=== PATIENT | female | born 1985 | race Caucasian/White ===

== ENCOUNTER 2016-07-20 18:04 | Emergency (ER) | payer OTHER | END 2016-07-20 21:05 | disposition home or self-care (01) | DX: O02.1 Missed abortion (principal) ==

== ENCOUNTER 2017-11-17 16:16 | Emergency (ER) | payer OTHER ==
[2017-11-17 16:50] LABS: BILIRUBIN,URINE NEGATIVE (NEGATIVE); GLUCOSE, URINE (UA) NEGATIVE (NEGATIVE); KETONES,URINE (UA) NEGATIVE (NEGATIVE); LEUKOCYTE ESTERASE, URINE MODERATE (NEGATIVE); NITRITE,URINE POSITIVE (NEGATIVE); OCCULT BLOOD,URINE LARGE (NEGATIVE); PH,URINE 6.5 PH (5.0-7.5); PROTEIN,URINE 30 mg/dL (NEGATIVE); UROBILINOGEN,URINE 0.2 (NORMAL) E.U./dL (NORMAL)
[2017-11-17 16:54] LABS: CLARITY,URINE CLOUDY (CLEAR)
--- NOTE | 2017-11-17 16:56 | ED Physician Documentation ---
History of Present Illness - Stated complaint Stated Complaint: FEMALE - Chief complaint Chief Complaint: UTI - History obtained from History obtained from: Patient - History of Present Illness Timing: Yesterday Pain level max: 4 Pain level now: 3 Improved by: nothing Worsened by: urination - Additonal information Additional information: 32 year old female 10 days . States temp of 101 at home 4 days ago. Dysuria, urgency, frequency today. Multiple UTI's in the past. States felt feverish today. Also complains of lower back being sore. States mild bleeding still from vaginal , but improved. No lower abd pain. Pt is Review of Systems Constitutional: denies: Chills, Myalgias Ears: denies: Ear pain Nose: denies: Rhinorrhea / runny nose, Congestion Respiratory: denies: Cough GI: denies: Nausea, Vomiting, Diarrhea Skin: denies: Rash Musculoskeletal: denies: Neck pain PD PAST MEDICAL HISTORY - Past Medical History Past Medical History: No - Past Surgical History Past Surgical History: Yes /PALLIATIVE CARE PHYSICIAN: Dilation and currettage - Present Medications Home Medications: Ambulatory Orders Medication Instructions Recorded Confirmed Cephalexin [Keflex] 500 mg PO Q6H #28 capsule 11/17/17 Docusate Calcium 240 mg 11/17/17 - Allergies Allergies/Adverse Reactions: Allergies Allergy/AdvReac Type Severity Reaction Status Date / Time sulfamethoxazole Allergy Respiratory Verified 07/20/16 18:19 [From Bactrim] trimethoprim [From Bactrim] Allergy Respiratory Verified 07/20/16 18:19 - Social History Does the pt smoke?: No Smoking Status: Never smoker Does the pt drink ETOH?: No Does the pt have substance abuse?: No - Immunizations Immunizations are current?: Yes Immunizations: TDAP >10years/unknown PD ED PE NORMAL - Vitals Vital signs reviewed: Yes - General General: Alert and oriented X 3, No acute distress, Well developed/nourished, Other (well appearing, non-toxic) - HEENT HEENT: PERRL, Moist mucous membranes - Neck Neck: Supple, no meningeal sign - Cardiac Cardiac: RRR, Strong equal pulses - Respiratory Respiratory: No respiratory distress, Clear bilaterally - Abdomen Abdomen: Soft, Non tender, Non distended - Female Female : Pt declined - Back Back: No CVA TTP, No spinal TTP - Derm Derm: Warm and dry, No rash - Extremities Extremities: No edema - Neuro Neuro: Alert and oriented X 3 - Psych Psych: Normal mood, Normal affect Results - Vitals Vitals: Vital Signs - 24 hr 11/17/17 11/17/17 16:22 17:47 Temperature 36.7 C 36.7 C Heart Rate 98 87 Respiratory 18 18 Rate Blood Pressure 145/96 H 144/92 H O2 Saturation 98 96 Oxygen O2 Source Room air - Labs Labs: Laboratory Tests 11/17/17 16:38 Urine Color YELLOW Urine Clarity CLOUDY Urine pH 6.5 Ur Specific [place] 1.020 Urine Protein 30 H Urine Glucose (UA) NEGATIVE Urine Ketones NEGATIVE Urine Occult Blood LARGE H Urine Nitrite POSITIVE H Urine Bilirubin NEGATIVE Urine Urobilinogen 0.2 (NORMAL) Ur Leukocyte Esterase MODERATE H Urine RBC TNTC H Urine WBC >25 H Urine WBC Clumps PRESENT Ur Squamous Epith Cells RARE Squamous Amorphous Sediment Few Urine Bacteria Many H Ur Microscopic Review INDICATED Urine Culture Comments INDICATED PD MEDICAL DECISION MAKING - ED course Complexity details: reviewed results, re-evaluated patient, considered differential, d/w patient ED course: Patient is a 32-year-old female with what appears to be a UTI. She is very well -appearing, nontoxic. No CVA tenderness. No evidence of pyelonephritis. Does not appear to have an exam consistent with endometritis or retained products of conception. Will place on antibiotics and follow-up closely with her OB. Patient counseled regarding signs and symptoms for which I believe and urgent re -evaluation would be necessary. Patient with good understanding of and agreement to plan and is comfortable going home at this time This document was made in part using voice recognition software. While efforts are made to proofread this document, sound alike and grammatical errors may occur. - Sepsis Event Vital Signs: Vital Signs - 24 hr 11/17/17 11/17/17 16:22 17:47 Temperature 36.7 C 36.7 C Heart Rate 98 87 Respiratory 18 18 Rate Blood Pressure 145/96 H 144/92 H O2 Saturation 98 96 Oxygen O2 Source Room air Departure - Departure Disposition: 01 Home, Self Care Clinical Impression: Urinary tract infection Qualifiers: Urinary tract infection type: acute cystitis Hematuria presence: without hematuria Qualified Code(s): N30.00 - Acute cystitis without hematuria Condition: Good Instructions: ED UTI Cystitis Female Follow-Up: your,doctor in 5 days for recheck [Other] Prescriptions: Cephalexin [Keflex] 500 mg PO Q6H #28 capsule Comments: Return if you worsen. Take all antibiotics until gone. Discharge Date/Time: 11/17/17 17:47
[2017-11-17 16:58] LABS: RBC,URINE TNTC /HPF (0-5); WBC CLUMPS,URINE PRESENT
[2017-11-17 16:59] LABS: AMORPHOUS SEDIMENT,UR Few /LPF; BACTERIA,URINE Many /HPF (None Seen); SQUAMOUS EPITHELIAL CELL,UR RARE Squamous (<= Few)
[2017-11-17] MEDS ORDERED: cephALEXin 250 MG CAPSULE PO STA (16:59)
[2017-11-17] MEDS ORDERED: LIDOCAINE 1% 2 ML VIAL SUBQ ONE (17:00)
[2017-11-17] MEDS ORDERED: cefTRIAXone 1 GM VIAL IM STA (17:00)
[2017-11-17 17:49] VITALS: BP 144/92
== END 2017-11-17 17:47 | disposition home or self-care (01) ==
LOC: ED 16:16
DX: O99.89 Other specified diseases and conditions complicating pregnancy, childbirth and the puerperium (principal); N30.00 Acute cystitis without hematuria
CPT/HCPCS: 81001; 81003; 87086; 87181; 96372; 99283

== ENCOUNTER 2019-04-25 14:43 | Inpatient (IN) | payer OTHER ==
--- NOTE | 2019-04-25 15:39 | PROVIDER PROGRESS NOTE ---
- HPI Chief Complaint: Hypertension/PIH Current : Current EDU 04/30/19 Gestation 39 Weeks and 2 Days 3 Para 1 Vital Signs Temperature 99.3 F 04/25/19 15:00 Heart Rate 75 04/25/19 15:00 Respiratory Rate 18 04/25/19 15:00 Blood Pressure 138/87 H 04/25/19 15:00 O2 Saturation 99 04/25/19 15:00 Temperature 99.3 F 04/25/19 15:00 Heart Rate 75 04/25/19 15:00 Respiratory Rate 18 04/25/19 15:00 Blood Pressure 138/87 H 04/25/19 15:00 O2 Saturation 99 04/25/19 15:00 33yo at 39+2 weeks by LMP c/w second trimester scan referred for further evaluation of HTN. Pt is new transfer from [facility] where she was receiving regular care. She was seen 2 days ago with BP of 145/90. She was asymptomatic and was scheduled to f/u later this week, but felt unwell this morning. Non- specific symptoms, just generally unwell. No n/v/f/c or dysuria. No headache, blurry vision or epigastric pain. Notes her usual GERD. No bleeding or fluid leak. Few mild contractions. Normal activity. Labs: H&H 31.9/11.0 Glucola 143>> nml 3hGTT VDRL/HepB/c neg Rubella/varicella immune GBS unknown - Procedures OB Procedure Performed: Other (NAKUL 13.2 GVP 3.50cm) Diagnosis/Indication for NST: Gestational Hypertension NST Procedure: NST Procedure Start Date 04/25/19 Start Time 14:52 Vibroacoustic Stimulation Used No Patient States Movement Yes Category 1, no accels. Vertex by scan NAKUL as noted - Plan Plan: 33yo at 39.2 weeks with mild gestational HTN. Assess for urine protein, check CMP H/O anemia; check CBC NST category1. No accels for rectivity Continue to monitor. Await results
[2019-04-25 15:45] LABS: BASOPHILS % (AUTO) 0.3 %; EOSINOPHILS % (AUTO) 0.1 %; HGB - HEMOGLOBIN 11.1 g/dL (12.0-16.0); LYMPHOCYTES # (AUTO) 1.7 10^3/uL (1.5-3.5); LYMPHOCYTES % (AUTO) 22.8 %; MEAN CORPUSCULAR HEMOGLOBIN 28.5 pg (27.0-31.0); MEAN CORPUSCULAR HGB CONC 33.9 g/dL (32.0-36.0); MEAN CORPUSCULAR VOLUME 84.1 fL (81.0-99.0); MEAN PLATELET VOLUME 10.3 fL (7.9-10.8); MONOCYTES # (AUTO) 0.5 10^3/uL (0.0-1.0); MONOCYTES % (AUTO) 6.3 %; NEUTROPHILS # (AUTO) 5.2 10^3/uL (1.5-6.6); NEUTROPHILS % (AUTO) 70.1 %; PLT - PLATELET COUNT 198 10^3/uL (130-450); RED BLOOD COUNT 3.89 10^6/uL (4.20-5.40); RED CELL DISTRIBUTION WIDTH 13.2 % (12.0-15.0); WHITE BLOOD COUNT 7.5 x10^3/uL (4.8-10.8)
[2019-04-25 15:54] LABS: ALBUMIN 2.9 g/dL (3.2-5.5); ALBUMIN/GLOBULIN RATIO 0.9 (1.0-2.2); BILIRUBIN,TOTAL 0.2 mg/dL (0.2-1.0); CALCIUM 9.1 mg/dL (8.5-10.3); CREATININE 0.8 mg/dL (0.4-1.0)
[2019-04-25 16:44] LABS: CREATININE,URINE 123.1 mg/dL; PROTEIN/CREATININE RATIO,URINE 0.2 (<=0.2)
[2019-04-25] MEDS ORDERED: OXYTOCIN/DEXTROSE 5 % 30 UNIT/500 ML BAG IV PRN (17:16)
[2019-04-25] MEDS ORDERED: ACETAMINOPHEN 325 MG TABLET PO PRN (17:16)
[2019-04-25] MEDS ORDERED: SODIUM CHLORIDE FLUSH 0.9% 10 ML SYRINGE IVP PRN (17:16)
[2019-04-25] MEDS ORDERED: fentaNYL 100 MCG/2 ML VIAL IVP PRN (17:16)
[2019-04-25] MEDS ORDERED: ONDANSETRON 4 MG/2 ML VIAL IVP PRN (17:16)
--- NOTE | 2019-04-25 17:25 | HISTORY & PHYSICAL EXAMINATION ---
Admit History - Visit Reason Visit Reason: Other (33yo at 39+2 weeks by LMP c/w second trimester scan referred for further evaluation of HTN. [facility] She was seen 2 days ago with BP of 145/90. She was asymptomatic and was scheduled to f/u later this week, but felt unwell this morning. Non-specific symptoms, just generally unwell. No n/v/f/c or dysuria. No headache, blurry vision or epigastric pain. Notes her usual GERD. No bleeding or fluid leak. Few mild contractions. Normal activity earlier today, now decreased. Labs: H&H 31.9/11.0 Glucola 143>> nml 3hGTT VDRL/HepB/c neg Rubella/varicella immune GBS neg 04/07) - Smoking Status: Never smoker - Mother's Labs Mother's Blood Type: positive: O Mother's RH: positive: Positive GBS: positive: Group B Step Negative Rubella Status: positive: Immune - Other Maternal History Other Maternal History: Iron deficiency Anemia Meds/Allgy - Home Medications Home Medications: Ambulatory Orders Medication Instructions Recorded Confirmed Calcium Carbonate [Tums (Calcium 500 mg PO BID 04/25/19 04/25/19 Carbonate 500mg)] Ferrous Sulfate 2 tab PO DAILY 04/25/19 04/25/19 Pnv No.95/Ferrous Fum/Folic AC 324 mg PO DAILY 04/25/19 04/25/19 [ Formula Tablet] - Allergies Allergies/Adverse Reactions: Allergies Allergy/AdvReac Type Severity Reaction Status Date / Time sulfamethoxazole Allergy Respiratory Verified 07/20/16 18:19 [From Bactrim] trimethoprim [From Bactrim] Allergy Respiratory Verified 07/20/16 18:19 Review of Systems - Other Findings Other Findings: As noted otherwise negative Physical - Abdominal Exam Vital Signs: Temp Pulse Resp BP Pulse Ox 99.3 F 75 18 138/87 H 99 04/25/19 15:00 04/25/19 15:00 04/25/19 15:00 04/25/19 15:00 04/25/19 15:00 Contraction Frequency (min/apart): rare Contraction Intensity: positive: Mild Uterine Resting Tone: positive: Soft - Monitoring Strip Review: positive: Category I (No accels No movement) - Presentation Presentation: positive: Vertex - Vaginal Exam Membranes: positive: Membranes intact Dilation (in cm): 1-2 Effacement (%): 0 Station: positive: -3 Cervical Position: positive: Midposition (Cook catheter placed with 60cc in uterine balloon, 40cc in vaginal balloon) Plan for Labor - Plan For Labor Plan for Labor: 33yo at 39+6 with gestational HTN, decreased movement admitted for IOL. Cook catheter placed for cervical ripening. IV fluid Transition to pitocin as indicated. Expect Exam - Exam Vital Signs: Vital Signs (72 hours) 04/25/19 15:00 Temperature 99.3 F Heart Rate [ 75 Monitoring electrodes] Respiratory 18 Rate Blood Pressure 138/87 H [Right Brachial artery] O2 Saturation 99 General: Alert, Oriented x3, Cooperative HEENT: Atraumatic Lungs: Clear to auscultation Cardiovascular: Regular rate Abdomen: Normal bowel sounds, Soft, No tenderness, No masses, Other (Gravid, S=D) Extremities: No clubbing Skin: No rashes Neurological: Normal gait, Normal speech Psych/Mental Status: Mental status NL
[2019-04-25] MEDS ORDERED: LACTATED RINGERS 1,000 ML IV SCH (18:00)
[2019-04-25] MEDS ORDERED: OXYTOCIN/DEXTROSE 5 % 30 UNIT/500 ML BAG IV SCH (18:00)
--- NOTE | 2019-04-25 22:12 | PROVIDER PROGRESS NOTE ---
Subjective - Prog Note Date Prog Note Date: 04/25/19 Prog Note Time: 22:10 - Subjective Subjective: Comfortable. Few mild contractions. Balloon still in place. VSS afen BP's 130-140's/80-90 FH category 1, accels present. Plan to add miso for cervical ripening Objective - Vital Signs/Intake & Output Vital Signs: Vital Signs x48h Temp Pulse Resp BP Pulse Ox 04/25/19 15:00 99.3 F 75 18 138/87 H 99 - Lab Results Fish Bones: 04/25/19 15:38 04/25/19 15:38 Other Labs: Lab Results x24hrs 04/25/19 04/25/19 04/25/19 Range/Units 17:55 16:00 15:38 WBC (4.8-10.8) x10^3/uL RBC (4.20-5.40) 10^6/uL Hgb (12.0-16.0) g/dL Hct (37.0-47.0) % MCV (81.0-99.0) fL MCH (27.0-31.0) pg MCHC (32.0-36.0) g/dL RDW (12.0-15.0) % Plt Count (130-450) 10^3/uL MPV (7.9-10.8) fL Neut # (Auto) (1.5-6.6) 10^3/uL Lymph # (Auto) (1.5-3.5) 10^3/uL [place] # (Auto) (0.0-1.0) 10^3/uL Eos # (Auto) (0.0-0.7) 10^3/uL Baso # (Auto) (0.0-0.1) 10^3/uL Absolute Nucleated RBC x10^3/uL Nucleated RBC % /100WBC Sodium 136 (135-145) mmol/L Potassium 3.1 L (3.5-5.0) mmol/L Chloride 107 (101-111) mmol/L Carbon Dioxide 21 (21-32) mmol/L Anion Gap 8.0 (6-13) BUN 7 (6-20) mg/dL Creatinine 0.8 (0.4-1.0) mg/dL Estimated GFR (MDRD) 84 L (>89) Glucose 130 H (70-100) mg/dL Calcium 9.1 (8.5-10.3) mg/dL Total Bilirubin 0.2 (0.2-1.0) mg/dL AST 19 (10-42) IU/L ALT 13 (10-60) IU/L Alkaline Phosphatase 93 (42-121) IU/L Total Protein 6.0 L (6.7-8.2) g/dL Albumin 2.9 L (3.2-5.5) g/dL Globulin 3.1 (2.1-4.2) g/dL Albumin/Globulin Ratio 0.9 L (1.0-2.2) Urine Creatinine 123.1 mg/dL Ur Total Protein Timed 23 mg/dL Protein/Creatinin Ratio 0.2 (<=0.2) Blood Type O POSITIVE Antibody Screen NEGATIVE 04/25/19 Range/Units 15:38 WBC 7.5 (4.8-10.8) x10^3/uL RBC 3.89 L (4.20-5.40) 10^6/uL Hgb 11.1 L (12.0-16.0) g/dL Hct 32.7 L (37.0-47.0) % MCV 84.1 (81.0-99.0) fL MCH 28.5 (27.0-31.0) pg MCHC 33.9 (32.0-36.0) g/dL RDW 13.2 (12.0-15.0) % Plt Count 198 (130-450) 10^3/uL MPV 10.3 (7.9-10.8) fL Neut # (Auto) 5.2 (1.5-6.6) 10^3/uL Lymph # (Auto) 1.7 (1.5-3.5) 10^3/uL [place] # (Auto) 0.5 (0.0-1.0) 10^3/uL Eos # (Auto) 0.0 (0.0-0.7) 10^3/uL Baso # (Auto) 0.0 (0.0-0.1) 10^3/uL Absolute Nucleated RBC 0.00 x10^3/uL Nucleated RBC % 0.0 /100WBC Sodium (135-145) mmol/L Potassium (3.5-5.0) mmol/L Chloride (101-111) mmol/L Carbon Dioxide (21-32) mmol/L Anion Gap (6-13) BUN (6-20) mg/dL Creatinine (0.4-1.0) mg/dL Estimated GFR (MDRD) (>89) Glucose (70-100) mg/dL Calcium (8.5-10.3) mg/dL Total Bilirubin (0.2-1.0) mg/dL AST (10-42) IU/L ALT (10-60) IU/L Alkaline Phosphatase (42-121) IU/L Total Protein (6.7-8.2) g/dL Albumin (3.2-5.5) g/dL Globulin (2.1-4.2) g/dL Albumin/Globulin Ratio (1.0-2.2) Urine Creatinine mg/dL Ur Total Protein Timed mg/dL Protein/Creatinin Ratio (<=0.2) Blood Type Antibody Screen
[2019-04-25] MEDS: FAMOTIDINE 20 MG TABLET PO SCH (23:19)
[2019-04-25] MEDS: miSOPROStoL 100 MCG TABLET PO SCH (23:19)
[2019-04-26] MEDS ORDERED: SODIUM CHLORIDE FLUSH 0.9% 10 ML SYRINGE IVP SCH (01:00)
--- NOTE | 2019-04-26 03:36 | PROVIDER PROGRESS NOTE ---
Subjective - Prog Note Date Prog Note Date: 04/26/19 Prog Note Time: 03:33 - Subjective Subjective: Feeling contractions. Not ready for pain meds. Balloon still in place. BP's 130-140's/80-90's Category 1 Contractions q2-4 Exam deferred Too many contractions now for another miso. Continue to observe for another 1-2 hours. If contractions space repeat miso Objective - Vital Signs/Intake & Output Vital Signs: Vital Signs x48h Temp Pulse Resp BP Pulse Ox 04/26/19 01:55 98.6 F 86 16 149/85 H 100 04/26/19 00:00 98.2 F 72 16 123/78 100 04/25/19 22:09 97.6 F L 83 16 130/86 H 100 - Lab Results Fish Bones: 04/25/19 15:38 04/25/19 15:38 Other Labs: Lab Results x24hrs 04/25/19 04/25/19 04/25/19 Range/Units 17:55 16:00 15:38 WBC (4.8-10.8) x10^3/uL RBC (4.20-5.40) 10^6/uL Hgb (12.0-16.0) g/dL Hct (37.0-47.0) % MCV (81.0-99.0) fL MCH (27.0-31.0) pg MCHC (32.0-36.0) g/dL RDW (12.0-15.0) % Plt Count (130-450) 10^3/uL MPV (7.9-10.8) fL Neut # (Auto) (1.5-6.6) 10^3/uL Lymph # (Auto) (1.5-3.5) 10^3/uL [place] # (Auto) (0.0-1.0) 10^3/uL Eos # (Auto) (0.0-0.7) 10^3/uL Baso # (Auto) (0.0-0.1) 10^3/uL Absolute Nucleated RBC x10^3/uL Nucleated RBC % /100WBC Sodium 136 (135-145) mmol/L Potassium 3.1 L (3.5-5.0) mmol/L Chloride 107 (101-111) mmol/L Carbon Dioxide 21 (21-32) mmol/L Anion Gap 8.0 (6-13) BUN 7 (6-20) mg/dL Creatinine 0.8 (0.4-1.0) mg/dL Estimated GFR (MDRD) 84 L (>89) Glucose 130 H (70-100) mg/dL Calcium 9.1 (8.5-10.3) mg/dL Total Bilirubin 0.2 (0.2-1.0) mg/dL AST 19 (10-42) IU/L ALT 13 (10-60) IU/L Alkaline Phosphatase 93 (42-121) IU/L Total Protein 6.0 L (6.7-8.2) g/dL Albumin 2.9 L (3.2-5.5) g/dL Globulin 3.1 (2.1-4.2) g/dL Albumin/Globulin Ratio 0.9 L (1.0-2.2) Urine Creatinine 123.1 mg/dL Ur Total Protein Timed 23 mg/dL Protein/Creatinin Ratio 0.2 (<=0.2) Blood Type O POSITIVE Antibody Screen NEGATIVE 04/25/19 Range/Units 15:38 WBC 7.5 (4.8-10.8) x10^3/uL RBC 3.89 L (4.20-5.40) 10^6/uL Hgb 11.1 L (12.0-16.0) g/dL Hct 32.7 L (37.0-47.0) % MCV 84.1 (81.0-99.0) fL MCH 28.5 (27.0-31.0) pg MCHC 33.9 (32.0-36.0) g/dL RDW 13.2 (12.0-15.0) % Plt Count 198 (130-450) 10^3/uL MPV 10.3 (7.9-10.8) fL Neut # (Auto) 5.2 (1.5-6.6) 10^3/uL Lymph # (Auto) 1.7 (1.5-3.5) 10^3/uL [place] # (Auto) 0.5 (0.0-1.0) 10^3/uL Eos # (Auto) 0.0 (0.0-0.7) 10^3/uL Baso # (Auto) 0.0 (0.0-0.1) 10^3/uL Absolute Nucleated RBC 0.00 x10^3/uL Nucleated RBC % 0.0 /100WBC Sodium (135-145) mmol/L Potassium (3.5-5.0) mmol/L Chloride (101-111) mmol/L Carbon Dioxide (21-32) mmol/L Anion Gap (6-13) BUN (6-20) mg/dL Creatinine (0.4-1.0) mg/dL Estimated GFR (MDRD) (>89) Glucose (70-100) mg/dL Calcium (8.5-10.3) mg/dL Total Bilirubin (0.2-1.0) mg/dL AST (10-42) IU/L ALT (10-60) IU/L Alkaline Phosphatase (42-121) IU/L Total Protein (6.7-8.2) g/dL Albumin (3.2-5.5) g/dL Globulin (2.1-4.2) g/dL Albumin/Globulin Ratio (1.0-2.2) Urine Creatinine mg/dL Ur Total Protein Timed mg/dL Protein/Creatinin Ratio (<=0.2) Blood Type Antibody Screen
[2019-04-26] MEDS: miSOPROStoL 100 MCG TABLET PO SCH (06:23)
--- NOTE | 2019-04-26 06:23 | PROVIDER PROGRESS NOTE ---
Subjective - Prog Note Date Prog Note Date: 04/26/19 Prog Note Time: 06:20 - Subjective Subjective: Very comfortable, sleeping Balloon in place VSS afeb, BP 145/92 Category 1, contractions now q3-4 Will give a third dose of miso. Objective - Vital Signs/Intake & Output Vital Signs: Vital Signs x48h Temp Pulse Resp BP Pulse Ox 04/26/19 01:55 98.6 F 86 16 149/85 H 100 04/26/19 00:00 98.2 F 72 16 123/78 100 - Lab Results Fish Bones: 04/25/19 15:38 04/25/19 15:38 Other Labs: Lab Results x24hrs 04/25/19 04/25/19 04/25/19 Range/Units 17:55 16:00 15:38 WBC (4.8-10.8) x10^3/uL RBC (4.20-5.40) 10^6/uL Hgb (12.0-16.0) g/dL Hct (37.0-47.0) % MCV (81.0-99.0) fL MCH (27.0-31.0) pg MCHC (32.0-36.0) g/dL RDW (12.0-15.0) % Plt Count (130-450) 10^3/uL MPV (7.9-10.8) fL Neut # (Auto) (1.5-6.6) 10^3/uL Lymph # (Auto) (1.5-3.5) 10^3/uL [place] # (Auto) (0.0-1.0) 10^3/uL Eos # (Auto) (0.0-0.7) 10^3/uL Baso # (Auto) (0.0-0.1) 10^3/uL Absolute Nucleated RBC x10^3/uL Nucleated RBC % /100WBC Sodium 136 (135-145) mmol/L Potassium 3.1 L (3.5-5.0) mmol/L Chloride 107 (101-111) mmol/L Carbon Dioxide 21 (21-32) mmol/L Anion Gap 8.0 (6-13) BUN 7 (6-20) mg/dL Creatinine 0.8 (0.4-1.0) mg/dL Estimated GFR (MDRD) 84 L (>89) Glucose 130 H (70-100) mg/dL Calcium 9.1 (8.5-10.3) mg/dL Total Bilirubin 0.2 (0.2-1.0) mg/dL AST 19 (10-42) IU/L ALT 13 (10-60) IU/L Alkaline Phosphatase 93 (42-121) IU/L Total Protein 6.0 L (6.7-8.2) g/dL Albumin 2.9 L (3.2-5.5) g/dL Globulin 3.1 (2.1-4.2) g/dL Albumin/Globulin Ratio 0.9 L (1.0-2.2) Urine Creatinine 123.1 mg/dL Ur Total Protein Timed 23 mg/dL Protein/Creatinin Ratio 0.2 (<=0.2) Blood Type O POSITIVE Antibody Screen NEGATIVE 04/25/19 Range/Units 15:38 WBC 7.5 (4.8-10.8) x10^3/uL RBC 3.89 L (4.20-5.40) 10^6/uL Hgb 11.1 L (12.0-16.0) g/dL Hct 32.7 L (37.0-47.0) % MCV 84.1 (81.0-99.0) fL MCH 28.5 (27.0-31.0) pg MCHC 33.9 (32.0-36.0) g/dL RDW 13.2 (12.0-15.0) % Plt Count 198 (130-450) 10^3/uL MPV 10.3 (7.9-10.8) fL Neut # (Auto) 5.2 (1.5-6.6) 10^3/uL Lymph # (Auto) 1.7 (1.5-3.5) 10^3/uL [place] # (Auto) 0.5 (0.0-1.0) 10^3/uL Eos # (Auto) 0.0 (0.0-0.7) 10^3/uL Baso # (Auto) 0.0 (0.0-0.1) 10^3/uL Absolute Nucleated RBC 0.00 x10^3/uL Nucleated RBC % 0.0 /100WBC Sodium (135-145) mmol/L Potassium (3.5-5.0) mmol/L Chloride (101-111) mmol/L Carbon Dioxide (21-32) mmol/L Anion Gap (6-13) BUN (6-20) mg/dL Creatinine (0.4-1.0) mg/dL Estimated GFR (MDRD) (>89) Glucose (70-100) mg/dL Calcium (8.5-10.3) mg/dL Total Bilirubin (0.2-1.0) mg/dL AST (10-42) IU/L ALT (10-60) IU/L Alkaline Phosphatase (42-121) IU/L Total Protein (6.7-8.2) g/dL Albumin (3.2-5.5) g/dL Globulin (2.1-4.2) g/dL Albumin/Globulin Ratio (1.0-2.2) Urine Creatinine mg/dL Ur Total Protein Timed mg/dL Protein/Creatinin Ratio (<=0.2) Blood Type Antibody Screen
--- NOTE | 2019-04-26 06:42 | PROVIDER PROGRESS NOTE ---
Subjective - Prog Note Date Prog Note Date: 04/26/19 Prog Note Time: 06:40 - Subjective Subjective: Feeling more uncomfortable, reports SROM of moderate meconium stained fluid. Balloon out VSS afeb Exam deferred Requesting epidural. Will call anesthesia Objective - Vital Signs/Intake & Output Vital Signs: Vital Signs x48h Temp Pulse Resp BP Pulse Ox 04/26/19 01:55 98.6 F 86 16 149/85 H 100 04/26/19 00:00 98.2 F 72 16 123/78 100 - Lab Results Fish Bones: 04/25/19 15:38 04/25/19 15:38 Other Labs: Lab Results x24hrs 04/25/19 04/25/19 04/25/19 Range/Units 17:55 16:00 15:38 WBC (4.8-10.8) x10^3/uL RBC (4.20-5.40) 10^6/uL Hgb (12.0-16.0) g/dL Hct (37.0-47.0) % MCV (81.0-99.0) fL MCH (27.0-31.0) pg MCHC (32.0-36.0) g/dL RDW (12.0-15.0) % Plt Count (130-450) 10^3/uL MPV (7.9-10.8) fL Neut # (Auto) (1.5-6.6) 10^3/uL Lymph # (Auto) (1.5-3.5) 10^3/uL [place] # (Auto) (0.0-1.0) 10^3/uL Eos # (Auto) (0.0-0.7) 10^3/uL Baso # (Auto) (0.0-0.1) 10^3/uL Absolute Nucleated RBC x10^3/uL Nucleated RBC % /100WBC Sodium 136 (135-145) mmol/L Potassium 3.1 L (3.5-5.0) mmol/L Chloride 107 (101-111) mmol/L Carbon Dioxide 21 (21-32) mmol/L Anion Gap 8.0 (6-13) BUN 7 (6-20) mg/dL Creatinine 0.8 (0.4-1.0) mg/dL Estimated GFR (MDRD) 84 L (>89) Glucose 130 H (70-100) mg/dL Calcium 9.1 (8.5-10.3) mg/dL Total Bilirubin 0.2 (0.2-1.0) mg/dL AST 19 (10-42) IU/L ALT 13 (10-60) IU/L Alkaline Phosphatase 93 (42-121) IU/L Total Protein 6.0 L (6.7-8.2) g/dL Albumin 2.9 L (3.2-5.5) g/dL Globulin 3.1 (2.1-4.2) g/dL Albumin/Globulin Ratio 0.9 L (1.0-2.2) Urine Creatinine 123.1 mg/dL Ur Total Protein Timed 23 mg/dL Protein/Creatinin Ratio 0.2 (<=0.2) Blood Type O POSITIVE Antibody Screen NEGATIVE 04/25/19 Range/Units 15:38 WBC 7.5 (4.8-10.8) x10^3/uL RBC 3.89 L (4.20-5.40) 10^6/uL Hgb 11.1 L (12.0-16.0) g/dL Hct 32.7 L (37.0-47.0) % MCV 84.1 (81.0-99.0) fL MCH 28.5 (27.0-31.0) pg MCHC 33.9 (32.0-36.0) g/dL RDW 13.2 (12.0-15.0) % Plt Count 198 (130-450) 10^3/uL MPV 10.3 (7.9-10.8) fL Neut # (Auto) 5.2 (1.5-6.6) 10^3/uL Lymph # (Auto) 1.7 (1.5-3.5) 10^3/uL [place] # (Auto) 0.5 (0.0-1.0) 10^3/uL Eos # (Auto) 0.0 (0.0-0.7) 10^3/uL Baso # (Auto) 0.0 (0.0-0.1) 10^3/uL Absolute Nucleated RBC 0.00 x10^3/uL Nucleated RBC % 0.0 /100WBC Sodium (135-145) mmol/L Potassium (3.5-5.0) mmol/L Chloride (101-111) mmol/L Carbon Dioxide (21-32) mmol/L Anion Gap (6-13) BUN (6-20) mg/dL Creatinine (0.4-1.0) mg/dL Estimated GFR (MDRD) (>89) Glucose (70-100) mg/dL Calcium (8.5-10.3) mg/dL Total Bilirubin (0.2-1.0) mg/dL AST (10-42) IU/L ALT (10-60) IU/L Alkaline Phosphatase (42-121) IU/L Total Protein (6.7-8.2) g/dL Albumin (3.2-5.5) g/dL Globulin (2.1-4.2) g/dL Albumin/Globulin Ratio (1.0-2.2) Urine Creatinine mg/dL Ur Total Protein Timed mg/dL Protein/Creatinin Ratio (<=0.2) Blood Type Antibody Screen
[2019-04-26] MEDS ORDERED: ROPIVACAINE 0.2% 200 MG/100 ML BAG EP ONE (07:25)
[2019-04-26] MEDS ORDERED: ROPIVACAINE 0.2% PF 20 ML AMPULE ONE (07:25)
[2019-04-26] MEDS ORDERED: LACTATED RINGERS 500 ML IV ONE (08:04)
[2019-04-26] MEDS ORDERED: NALBUPHINE 10 MG/ML AMP IVP PRN (08:04)
[2019-04-26] MEDS ORDERED: ONDANSETRON 4 MG/2 ML VIAL IVP PRN (08:04)
[2019-04-26] MEDS ORDERED: ePHEDrine 50 MG/ML VIAL IVP PRN (08:04)
[2019-04-26] MEDS ORDERED: ROPIVACAINE 0.2% 200 MG/100 ML BAG EP PRN (08:04)
[2019-04-26] MEDS ORDERED: METOCLOPRAMIDE 10 MG/2 ML VIAL IVP PRN (08:04)
[2019-04-26] MEDS ORDERED: diphenhydrAMINE INJ 50 MG/ML VIAL IVP PRN (08:04)
[2019-04-26] MEDS ORDERED: NALOXONE 0.4 MG/ML VIAL IVP PRN (08:04)
--- NOTE | 2019-04-26 08:17 | ANESTHESIA ---
Pre-Anesthesia VS, & Labs - Diagnosis term labor, IUP - Procedure labor epidural Vital Signs: Temp Pulse Resp BP Pulse Ox 37.0 C 86 16 149/85 H 100 04/26/19 01:55 04/26/19 01:55 04/26/19 01:55 04/26/19 01:55 04/26/19 01:55 Height 5 ft 2 in Weight (kg) 87.09 kg Body Mass Index 33.0 - NPO Last Fluid Intake: t/o noc - Is Patient ?: Yes - Lab Results Current Lab Results: Laboratory Tests 04/25/19 17:55: Blood Type O POSITIVE, Antibody Screen NEGATIVE 04/25/19 15:38: Sodium 136, Potassium 3.1 L, Chloride 107, Carbon Dioxide 21, Anion Gap 8.0, BUN 7, Creatinine 0.8, Estimated GFR (MDRD) 84 L, Glucose 130 H, Calcium 9.1, Total Bilirubin 0.2, AST 19, ALT 13, Alkaline Phosphatase 93, Total Protein 6.0 L, Albumin 2.9 L, Globulin 3.1, Albumin/Globulin Ratio 0.9 L 04/25/19 15:38: WBC 7.5, RBC 3.89 L, Hgb 11.1 L, Hct 32.7 L, MCV 84.1, MCH 28.5, MCHC 33.9, RDW 13.2, Plt Count 198, MPV 10.3, Neut # (Auto) 5.2, Lymph # (Auto) 1.7, Garvin # (Auto) 0.5, Eos # (Auto) 0.0, Baso # (Auto) 0.0, Absolute Nucleated RBC 0.00, Nucleated RBC % 0.0 Lab results reviewed: Yes Fish Bones: 04/25/19 15:38 04/25/19 15:38 Home Medications and Allergies Home Medications: Ambulatory Orders Calcium Carbonate [Tums (Calcium Carbonate 500mg)] 500 mg PO BID 04/25/19 Ferrous Sulfate 2 tab PO DAILY 04/25/19 Pnv No.95/Ferrous Fum/Folic AC [ Formula Tablet] 324 mg PO DAILY 04/25/19 Active Medications Acetaminophen (Tylenol) 650 mg PO Q6H PRN PRN Reason: PAIN Diphenhydramine HCl (Benadryl Inj) 12.5 - 25 mg IVP Q6HR PRN PRN Reason: ITCHING Ephedrine Sulfate () 5 mg IVP Q5M PRN PRN Reason: For SBP<100;give until SBP>100 Famotidine (Pepcid) 20 mg PO BID [facility] Last Admin: 04/25/19 23:19 Dose: 20 mg Fentanyl (Fentanyl) 50 mcg IVP Q1H PRN PRN Reason: PAIN Lactated Ringer's (Lr) 1,000 mls @ 150 mls/hr IV .Q6H40M [facility] OXYTOCIN/DEXTROSE 5 % (Pitocin/Dextrose 5%) 30 unit in 500 mls @ 2 mls/hr IV TITR [place]; Protocol OXYTOCIN/DEXTROSE 5 % (Pitocin/Dextrose 5%) 30 unit in 500 mls @ 999 mls/hr IV PRN PRN; Protocol PRN Reason: POST- HEMORR PREVENTION Lactated Ringer's (Lr) 500 mls @ 999 mls/hr IV ONCE ONE Stop: 04/26/19 08:34 Ropivacaine (Naropin 0.2%) 200 mg in 100 mls @ 0 mls/hr EP PRN PRN; Protocol PRN Reason: PAIN Metoclopramide HCl (Reglan Inj) 10 mg IVP Q6HR PRN PRN Reason: Nausea / Vomiting Misoprostol (Cytotec) 50 mcg PO Q4H [facility] Last Admin: 04/26/19 06:23 Dose: 50 mcg Nalbuphine HCl (Nubain) 2.5 - 5 mg IVP Q4H PRN PRN Reason: ITCHING Naloxone HCl (Narcan) 0.1 mg IVP Q2M PRN PRN Reason: RR<8 Ondansetron HCl (Zofran Inj) 4 mg IVP Q4H PRN PRN Reason: Nausea / Vomiting Ondansetron HCl (Zofran Inj) 4 mg IVP Q6HR PRN PRN Reason: Nausea / Vomiting Sodium Chloride (Normal Saline Flush 0.9%) 10 ml IVP PRN PRN PRN Reason: NEEDED PER PROVIDER ORDERS Sodium Chloride (Normal Saline Flush 0.9%) 10 ml IVP 0100,0900,1700 [facility] Calcium Carbonate [Tums (Calcium Carbonate 500mg)] 500 mg PO BID 04/25/19 Ferrous Sulfate 2 tab PO DAILY 04/25/19 Pnv No.95/Ferrous Fum/Folic AC [ Formula Tablet] 324 mg PO DAILY 04/25/19 Allergies/Adverse Reactions: Allergies Allergy/AdvReac Type Severity Reaction Status Date / Time sulfamethoxazole Allergy Respiratory Verified 07/20/16 18:19 [From Bactrim] trimethoprim [From Bactrim] Allergy Respiratory Verified 07/20/16 18:19 Anes History & Medical History - Anesthetic History Anesthesia Complications: reports: No previous complications Family history of Anesthesia Complications: Denies Family history of Malignant Hyperthermia: Denies - Medical History Smoking Status: Never smoker - Surgical History Gynecologic: Dilation and currettage, Other (bartholian cyst) Dermatologic: Other Exam General: Alert, Oriented x3, Cooperative Dental: WNL Mouth Openin Fingerbreadth Neck Mobility: Normal Mallampati classification: II Respiratory: No respiratory distress Cardiovascular: Regular rate Neurological: Normal speech Mental/Cognitive Status: Alert/Oriented X3, Normal for patient Cognitive Status: Within normal limits Plan Anesthesia Type: Epidural Consent for Procedure(s) Verified and Reviewed: Yes Code Status: Attempt Resuscitation ASA classification: 2-Mild systemic disease Is this case an emergency?: No
[2019-04-26] MEDS ORDERED: OXYTOCIN/DEXTROSE 5 % 30 UNIT/500 ML BAG IV ONE (11:53)
--- NOTE | 2019-04-26 11:53 | PROVIDER PROGRESS NOTE ---
Subjective - Prog Note Date Prog Note Date: 04/26/19 Prog Note Time: 11:51 - Subjective Subjective: Feeling a little pressure. Otherwise comfortable with epidural VSS afeb BP's 130-140's/80-90's >100cc/hr pale clear urine from [place]han Category 1 Contractions 3-5 VE Rim/0 station with forebag>>>ruptured. Continued moderate meconium +1 with contraction A/P Contractions spaced; will start pitocin Expect Objective - Lab Results Fish Bones: 04/25/19 15:38 04/25/19 15:38 Other Labs: Lab Results x24hrs 04/25/19 04/25/19 04/25/19 Range/Units 17:55 16:00 15:38 WBC (4.8-10.8) x10^3/uL RBC (4.20-5.40) 10^6/uL Hgb (12.0-16.0) g/dL Hct (37.0-47.0) % MCV (81.0-99.0) fL MCH (27.0-31.0) pg MCHC (32.0-36.0) g/dL RDW (12.0-15.0) % Plt Count (130-450) 10^3/uL MPV (7.9-10.8) fL Neut # (Auto) (1.5-6.6) 10^3/uL Lymph # (Auto) (1.5-3.5) 10^3/uL Jenkins # (Auto) (0.0-1.0) 10^3/uL Eos # (Auto) (0.0-0.7) 10^3/uL Baso # (Auto) (0.0-0.1) 10^3/uL Absolute Nucleated RBC x10^3/uL Nucleated RBC % /100WBC Sodium 136 (135-145) mmol/L Potassium 3.1 L (3.5-5.0) mmol/L Chloride 107 (101-111) mmol/L Carbon Dioxide 21 (21-32) mmol/L Anion Gap 8.0 (6-13) BUN 7 (6-20) mg/dL Creatinine 0.8 (0.4-1.0) mg/dL Estimated GFR (MDRD) 84 L (>89) Glucose 130 H (70-100) mg/dL Calcium 9.1 (8.5-10.3) mg/dL Total Bilirubin 0.2 (0.2-1.0) mg/dL AST 19 (10-42) IU/L ALT 13 (10-60) IU/L Alkaline Phosphatase 93 (42-121) IU/L Total Protein 6.0 L (6.7-8.2) g/dL Albumin 2.9 L (3.2-5.5) g/dL Globulin 3.1 (2.1-4.2) g/dL Albumin/Globulin Ratio 0.9 L (1.0-2.2) Urine Creatinine 123.1 mg/dL Ur Total Protein Timed 23 mg/dL Protein/Creatinin Ratio 0.2 (<=0.2) Blood Type O POSITIVE Antibody Screen NEGATIVE 04/25/19 Range/Units 15:38 WBC 7.5 (4.8-10.8) x10^3/uL RBC 3.89 L (4.20-5.40) 10^6/uL Hgb 11.1 L (12.0-16.0) g/dL Hct 32.7 L (37.0-47.0) % MCV 84.1 (81.0-99.0) fL MCH 28.5 (27.0-31.0) pg MCHC 33.9 (32.0-36.0) g/dL RDW 13.2 (12.0-15.0) % Plt Count 198 (130-450) 10^3/uL MPV 10.3 (7.9-10.8) fL Neut # (Auto) 5.2 (1.5-6.6) 10^3/uL Lymph # (Auto) 1.7 (1.5-3.5) 10^3/uL Jenkins # (Auto) 0.5 (0.0-1.0) 10^3/uL Eos # (Auto) 0.0 (0.0-0.7) 10^3/uL Baso # (Auto) 0.0 (0.0-0.1) 10^3/uL Absolute Nucleated RBC 0.00 x10^3/uL Nucleated RBC % 0.0 /100WBC Sodium (135-145) mmol/L Potassium (3.5-5.0) mmol/L Chloride (101-111) mmol/L Carbon Dioxide (21-32) mmol/L Anion Gap (6-13) BUN (6-20) mg/dL Creatinine (0.4-1.0) mg/dL Estimated GFR (MDRD) (>89) Glucose (70-100) mg/dL Calcium (8.5-10.3) mg/dL Total Bilirubin (0.2-1.0) mg/dL AST (10-42) IU/L ALT (10-60) IU/L Alkaline Phosphatase (42-121) IU/L Total Protein (6.7-8.2) g/dL Albumin (3.2-5.5) g/dL Globulin (2.1-4.2) g/dL Albumin/Globulin Ratio (1.0-2.2) Urine Creatinine mg/dL Ur Total Protein Timed mg/dL Protein/Creatinin Ratio (<=0.2) Blood Type Antibody Screen
[2019-04-26] MEDS ORDERED: LIDOCAINE-MPF 1% 30 ML VIAL ONE (11:54)
[2019-04-26] MEDS ORDERED: OXYTOCIN/DEXTROSE 5 % 30 UNIT/500 ML BAG IV SCH (12:00)
[2019-04-26] MEDS ORDERED: HYDROcod/ACETAM 5/325 MG TABLET PO PRN (13:52)
[2019-04-26] MEDS ORDERED: HYDROCORTISONE 1% CREAM 28 GM TUBE PR PRN (13:52)
[2019-04-26] MEDS ORDERED: WITCH HAZEL/GLYCERIN 1 PAD TOP PRN (13:52)
--- NOTE | 2019-04-26 13:55 | DELIVERY NOTE ---
Delivery Note - Labor Labor: positive: Augmented by oxytocin - Delivery Method Infant Delivery Method: positive: Spontaneous vaginal delivery - Cervical Ripening Method Cervical Ripening Method: positive: Balloon device, Misoprostil - Presentation Presentation: positive: Vertex, FLOYD - left occiput anterior - Nuchal Cord Nuchal Cord: positive: Present, Reduced - Anesthetic Anesthetic Type: - Amniotic Fluid Description Amniotic Fluid Description: positive: Moderate meconium - Episiotomy Type Episiotomy Type: positive: None - Laceration Laceration: positive: Labial (Bilateral. Repaired Cervix, vagina, perinuem, rectum intact) - Suture Suture Type: positive: Vicryl Suture Size: positive: 2-0 - Delivery Outcome Delivery Outcome: positive: Livebirth (3314gm female infant apgars 9/9 delivered from [place] at 13:26. Spontaneous vigorous cry. Loose nuchal cord x1 reduced. Placenta delivered intact with traction. Thin, marginally inserted 3 vesel cord. Membranes meconium stained. Repair as noted. EBL 300cc.) - : positive: Placed in direct skin contact with mother, Bulb syringe, Warmed, [place] used sex: positive: Female - Cord Cord: positive: 3 vessels - Placenta Placenta: positive: Intact, Other (See above) - Estimated Blood Loss Estimated Blood Loss (in cc): 300 - Post Delivery Events Post Delivery Events: positive: No post delivery events
[2019-04-26] MEDS ORDERED: LACTATED RINGERS 1,000 ML IV SCH (14:00)
--- NOTE | 2019-04-26 14:09 | DISCHARGE SUMMARY ---
Discharge Summary Admit Date: 04/25/19 Discharging Provider: Evelin Boyer MD Condition at Discharge: Good Discharge Disposition: 01 Home, Self Care - DIAGNOSES Admission Diagnoses: at 39+2 weeks Mild gestational hypertension Anemia - HPI History of Present Illness: 33yo at 39+2 weeks by LMP c/w second trimester scan referred for further evaluation of HTN. Pt is new transfer from [facility] where she was receiving regular care. She was seen 2 days [employer] with BP of 145/90. She was asymptomatic and was scheduled to f/u later this week, but felt unwell this morning, and noted decreased activity. - HOSPITAL COURSE Hospital Course: On evaluation, labs were significant only for anemia c/w iron deficiency. Although initial tracing was category 1, there were no accels and after extended observation, there was minimal movement. BP's remained in the mild range. It was elected to proceed with IOL. A cervical balloon was placed. Once the tracing showed accels, miso prostol was given. At the time the balloon fell out, SROM of moderately meconium stained fluid was noted. She required pitocin augmentation. Epidural was placed. She progressed to full dilation and was delivered of a 3314gm female infant apgars 9/9 on 04/26. Bilateral labial lacerations were repaired. EBL was 300cc. Her poatpartum BP's remained 120-140's/70-80's and was otherwise uncomplicated. She is planning Nexplanon and will come to clinic this week to have it placed (not available in hospital) DC'd home on PPD 1. - ALLERGIES Allergies/Adverse Reactions: Allergies Allergy/AdvReac Type Severity Reaction Status Date / Time sulfamethoxazole Allergy Respiratory Verified 07/20/16 18:19 [From Bactrim] trimethoprim [From Bactrim] Allergy Respiratory Verified 07/20/16 18:19 - MEDICATIONS Home Medications: Ambulatory Orders Medication Instructions Recorded Confirmed Calcium Carbonate [Tums (Calcium 500 mg PO BID 04/25/19 04/25/19 Carbonate 500mg)] Ferrous Sulfate 2 tab PO DAILY 04/25/19 04/25/19 Pnv No.95/Ferrous Fum/Folic AC 324 mg PO DAILY 04/25/19 04/25/19 [ Formula Tablet] - PHYSICAL EXAM AT DISCHARGE General Appearance: positive: No acute distress, Alert Respiratory: positive: No respiratory distress Cardiovascular: positive: Regular rate & rhythm Abdomen: positive: Non-tender - LABS Result Diagrams: 04/25/19 15:38 04/25/19 15:38
[2019-04-26] MEDS: IBUPROFEN 600 MG TABLET PO PRN ×2 (15:46→21:42)
--- NOTE | 2019-04-26 19:01 | PROVIDER PROGRESS NOTE ---
Subjective - Prog Note Date Prog Note Date: 04/26/19 Prog Note Time: 19:00 - Subjective Subjective: Comfortable. Ambulating, voiding. Minima lochia Gloria reg diet. BP's 130-40's/80's Stable Continue routine care. Objective - Vital Signs/Intake & Output Vital Signs: Vital Signs x48h Temp Pulse Resp BP 04/26/19 15:48 96 132/82 H 04/26/19 15:39 96 16 147/83 H 04/26/19 14:30 102 H 18 141/74 H 04/26/19 14:15 89 16 137/78 H 04/26/19 14:00 98.4 F 95 16 132/81 H Intake & Output: Intake & Output 04/23/19 04/24/19 04/25/19 04/26/19 23:59 23:59 23:59 23:59 Intake Total 3.1 Output Total 300 Balance -296.9 - Lab Results Fish Bones: 04/25/19 15:38 04/25/19 15:38 Other Labs: Lab Results x24hrs 04/25/19 Range/Units 17:55 Blood Type O POSITIVE Antibody Screen NEGATIVE
[2019-04-26] MEDS: FAMOTIDINE 20 MG TABLET PO SCH (19:57)
[2019-04-27] MEDS: IBUPROFEN 600 MG TABLET PO PRN ×2 (11:20→16:40)
--- NOTE | 2019-04-27 12:27 | PROVIDER PROGRESS NOTE ---
Subjective - Prog Note Date Prog Note Date: 04/27/19 Prog Note Time: 12:25 - Subjective Subjective: PPD 1 Feeling very well, wants to go home. Minimal lochia, ambulating, voiding, reg diet. well. VSS afeb BP's 120-140/70-80's Abd soft, fundus firm A/P Stable. DC home Planning Nexplanon. Continue vit/iron Objective - Vital Signs/Intake & Output Vital Signs: Vital Signs x48h Temp Pulse Resp BP Pulse Ox 04/27/19 08:40 98.2 F 66 20 126/89 H 100 04/27/19 04:30 98.6 F 70 16 119/76 Intake & Output: Intake & Output 04/24/19 04/25/19 04/26/19 04/27/19 23:59 23:59 23:59 23:59 Intake Total 3.1 Output Total 1000 Balance -996.9 - Lab Results Fish Bones: 04/25/19 15:38 04/25/19 15:38
--- NOTE | 2019-04-27 12:34 | Discharge Plan ---
Discharge Plan Problem Reviewed?: Yes Disposition: Home, Self Care Condition: Good Diet: Regular Activity Restrictions: Pelvic rest Shower Restrictions: No Driving Restrictions: No Weight Bearing: Full Weight Additional Instructions or Follow Up instructions: Planning Nexplanon; f/u in women[facility] clinic for placement in next 1-2 weeks No Smoking: If you smoke, Please STOP! Call for help. Follow-up with: Maria De Jesus Gruber MD [Provider Admit Priv/Credential] -
[2019-04-27 15:47] VITALS: BP 138/87
[2019-04-27] MEDS: FAMOTIDINE 20 MG TABLET PO SCH (16:38)
--- NOTE | 2019-04-27 17:21 | Labor Flowsheet ---
Labor Flowsheet Datetime Report Generated by CPN: 04/27/2019 17:21 Datetime: 04/27/2019 15:36 VITAL SIGNS NBP Sys/Leonela/Mean (mmHg): 138 : 87 : 100 Pulse: 73 LaborFlag: Labor Datetime: 04/26/2019 13:00 UTERINE ACTIVITY Monitor Mode: External Frequency (min): 2-4 Quality: Moderate Duration (sec): 60-90 Pattern: Normal: <= 5 Contractions in 10 Minutes Resting Tone (Palpate): Relaxed ASSESSMENT A Monitor Mode: External US FHR Baseline Rate : 145 FHR Baseline Changes: No Baseline Change Variability: Moderate 6-25 bpm Decelerations: Late; Variable VAGINAL EXAM Dilatation (cm): 9.5 (Annotations: Dr. Erber pushing with patient and reducing anterior lip) STAGE 2 Pushing: Coached on Pushing Pushing Position: Pushing with Contractions Pushing Progress: Descent with Pushing Datetime: 04/26/2019 12:30 Accelerations: 15X15 Datetime: 04/26/2019 12:00 Category: Category I MEDICATIONS Pitocin (milliunits): Started @ (Annotations: 2) Datetime: 04/26/2019 11:55 Exam by: Dr. Erber Membrane Status: Ruptured (Annotations: forebag ) Datetime: 04/26/2019 11:54 Temperature (C): 36.9 Patient Position/Activity: Semi-Fowlers Datetime: 04/26/2019 11:25 Pain Coping: Sleeping Datetime: 04/26/2019 10:02 PAIN Pain Scale: 0 Datetime: 04/26/2019 09:07 I/O Interventions: Yin Cath Inserted Datetime: 04/26/2019 09:04 Effacement (%): 70 Station: -2 Datetime: 04/26/2019 08:53 SpO2 (%): 100 Datetime: 04/26/2019 08:19 Pain Presence: Intermittent Pain Type: Contraction Pain Location: Abdomen Pain Relief Measures: Epidural Given Datetime: 04/26/2019 07:38 Epidural Procedure: Cath Placed Datetime: 04/26/2019 07:37 ANESTHESIA Anesthesia Plans: Epidural Epidural Positioning: Sitting Datetime: 04/26/2019 07:30 Contraction Comments: difficulty tracing ctx d/t maternal positioning. pt crying through ctx. PATIENT CARE IV/Blood Work: IV Bolus Started; IV Bag Number @ 1 Datetime: 04/26/2019 07:25 Communication Comments: [employer] Negron here. Datetime: 04/26/2019 07:20 COMMUNICATION Communication: Report Given to @ B Kathan RN Datetime: 04/26/2019 06:58 Provider Notified (Name): [employer] Negron Notification Reason: Patient Request Datetime: 04/26/2019 06:44 Hygiene: Underpad Changed Datetime: 04/26/2019 06:40 Patient Care Comments: pt reports increased discomfort, requesting nitrous oxide Datetime: 04/26/2019 06:27 Membranes Rupture Method: Spontaneous Amniotic Fluid Color: Particulate Meconium Amniotic Fluid Amount: Moderate Amniotic Fluid Odor: Normal Datetime: 04/26/2019 05:59 Respirations: 16 Temperature Route: Oral Datetime: 04/26/2019 04:30 Monitor Interventions for UA: [place] Adjusted Monitor Interventions for FHR: Ultrasound Adjusted Datetime: 04/26/2019 04:09 Comments: telemetry battery out. changing telemetry units. Datetime: 04/25/2019 23:19 Antiemetics/Antacids: Pepcid PO (mg) @ 20 Cervical Ripening Agents: Cytotec @ 50mcg Datetime: 04/25/2019 23:00 Comfort Measures: Breathing/Relaxation Datetime: 04/25/2019 21:00 TEACHING Instructional Method: Verbal Plan of Care: Plan of Care Discussed Unit Routine: Unit Personnel Pain Management: Epidural; Comfort Measures Related: Nutrition; Hydration; Activity and Rest Datetime: 04/25/2019 19:00 Oxygen Method: Room Air Datetime: 04/25/2019 17:46 Vaginal Bleeding: None Cervix, Consistency: Moderate Cervix, Position: Posterior Datetime: 04/25/2019 17:38 Stage of : Labor
== END 2019-04-27 17:10 | disposition home or self-care (01) | DRG 807 ==
LOC: WFO 14:43 → FBP 14:46 → WFO 17:16
PROVIDERS: ADMIT Obstetrics & Gynecology; ATTEND Obstetrics & Gynecology
PROC: 0U7C7ZZ Dilation of Cervix, Via Natural or Artificial Opening (ICD-10-PCS; 2019-04-25)
PROC: 10E0XZZ Delivery of Products of Conception, External Approach (ICD-10-PCS; principal; 2019-04-26)
PROC: 0UQMXZZ Repair Vulva, External Approach (ICD-10-PCS; 2019-04-26)
PROC: 10907ZC Drainage of Amniotic Fluid, Therapeutic from Products of Conception, Via Natural or Artificial Opening (ICD-10-PCS; 2019-04-26)
DX: O13.4 Gestational [pregnancy-induced] hypertension without significant proteinuria, complicating childbirth (principal); Z37.0 Single live birth; Z3A.39 39 weeks gestation of pregnancy; O99.02 Anemia complicating childbirth; D50.9 Iron deficiency anemia, unspecified; O36.8190 Decreased fetal movements, unspecified trimester, not applicable or unspecified; O77.0 Labor and delivery complicated by meconium in amniotic fluid; O70.0 First degree perineal laceration during delivery; Z79.899 Other long term (current) drug therapy; O99.62 Diseases of the digestive system complicating childbirth; K21.9 Gastro-esophageal reflux disease without esophagitis; O69.81X0 Labor and delivery complicated by cord around neck, without compression, not applicable or unspecified
CPT/HCPCS: 36415; 59025; 80053; 82570; 84156; 85025; 86850; 86900; 86901; A9270; J7120